=== PATIENT | female | born 1975 | race African-American/Black ===

== ENCOUNTER 2020-04-20 19:58 | Emergency (ER) | payer OTHER, SELFPAY ==
[2020-04-20 20:04] VITALS: BP 105/79; PULSE 84; RESP 16; TEMP 37.2; O2SAT 98; BMI 38.5
--- NOTE | 2020-04-20 22:35 | ED_ITS ---
HPI - Neuro Symptoms/Deficit General Chief Complaint: Neuro Symptoms/Deficit Stated Complaint: Fingertip numbness Time Seen by Provider: 04/20/20 22:35 Source: patient Mode of arrival: ambulatory Limitations: no limitations History of Present Illness HPI Narrative: This is a 44-year-old female who presents with reports numbness to the tips of all of her fingers on the right hand as well as the left hand after having undergone a neck block by her neurologist for her migraines. She denies any associated hearing / visual / speech abnormalities and states that other than the numbness she is having some left wrist discomfort and has a history of arthritis. Otherwise, she denies any fevers, chills, shortness of breath, chest pain / palpitations, GI symptoms, or symptoms. Review of Systems Review of Systems: Pertinent positives and negatives as stated in HPI and 10 point review systems is otherwise negative. [facility] Past Medical History Source: nursing notes reviewed Medical History Anxiety Asthma Depression Fibromyalgia HTN (hypertension) Right knee meniscal tear Surgical History Gastric bypass status for obesity Social History Social History Advance Directives: No Advance Directives Information Provided: Yes Physical Exam Vital Signs: Vital Signs: Last Vital Signs Temp 99 F 04/20/20 20:04 Pulse 84 04/20/20 20:04 Resp 16 04/20/20 20:04 BP 105/79 04/20/20 20:04 Pulse Ox 98 04/20/20 20:04 Body Mass Index 38.5 VITAL SIGNS: Reviewed. GENERAL: Well developed, well nourished, in no acute distress. HEAD: Normocephalic/atraumatic, EYES: PERRLA, EOMI intact without pain, no nystagmus/pallor/icterus noted EARS: Ext canals without abnormality, TMs non-bulging and non-erythematous NOSE: Nares patent bilateral OROPHARYNX: no oral lesions noted, posterior pharynx clear and non-erythematous without noted tonsillar enlargement/erythema/exudates NECK: Supple, no adenopathy LUNGS: Normal breath sounds. No adventitious sounds or accessory muscle use. SpO2<98> CARDIOVASCULAR: Regular rate and rhythm without noted murmurs, no JVD or lower extremity edema. ABDOMEN: Soft, non-tender, non-distended with bowel sounds. No rigidity. No guarding. No palpable masses or hernias noted MUSCULOSKELETAL: No tenderness, deformities, or effusions noted on gross inspection. EXTREMITIES: No cyanosis, clubbing or edema; BILATERAL UPPER EXTREMITY: Capillary refill is less than 3 seconds, neurovascular intact, Tinel and Phalen test are negative, and Spurling's is negative SKIN: Inspection of the skin reveals no rashes, ulcerations, jaundice, pallor, or petechiae. NEUROLOGIC: Alert and oriented x 4. Strength and sensation to light touch were grossly intact x 4 , no appreciable sensory deficits on evaluation of bilateral upper extremities, bilateral hand strength is 5/5 and symmetrical Course Course Course Narrative: This is a 44-year-old female with history and clinical presen tation consistent with likely neuropathy but this is certainly inconsistent with any stroke-like symptoms or radiculopathy. Patient does have underlying fibromyalgia but the numbness in all tips of the fingers on the right may be secondary to affect of the block, however with the pain and numbness in all fingers on the left hand this is more consistent with an arthritis. The patient was reassured and recommended her to try Aspercreme or Voltaren ([id number]) as she has a history of gastric bypass. Additionally, she was encouraged to follow up further primary care provider tomorrow for further re-evaluation and management. Discharge Plan Discharge Clinical Impression: Arthritis, Neuropathy Patient Disposition: Home, Self-Care Instructions: Arthritis (ED), Peripheral Neuropathy (ED) Additional Instructions: 1. recommend trying Tylenol 1000 mg, orally, every 6 hours as needed for hand discomfort. Do not exceed 4000 mg within 24 hours. 2. recommend trying [id number] Aspercreme or Voltaren to the left hand for symptom relief. The patient and/or family acknowledge understanding of results (as applicable), diagnosis, treatment plan, need for follow up, and symptoms that should prompt a return to the emergency room. Referrals: Pita Koehler MD [Physician] - 2 days (Neuropathy and arthritis in the hands)
== END 2020-04-20 23:04 | disposition home or self-care (01) ==
PROVIDERS: Emergency Provider Student in an Organized Health Care Education/Training Program
DX: M19.041 Primary osteoarthritis, right hand (principal); G62.9 Polyneuropathy, unspecified; I10 Essential (primary) hypertension; Z79.899 Other long term (current) drug therapy; Z98.84 Bariatric surgery status
CPT/HCPCS: 99283

== ENCOUNTER 2021-10-30 20:34 | Emergency (ER) | payer OTHER, SELFPAY ==
--- NOTE | ~2021-10-30 | CT_ITS ---
EXAMINATION: CT HEAD WITHOUT CONTRAST CLINICAL INFORMATION: Dizziness. COMPARISON: None TECHNIQUE: Contiguous axial imaging was performed from the skull base to vertex without intravenous administration of contrast. This CT examination was performed using dose optimization techniques as appropriate, variously including the following: *Automated exposure control *Adjustment of mA and/or kV according to patient size (this includes techniques or standardized protocols for targeted exams where dose is matched to indication/reason for exam; i.e. extremities or head) *Use of iterative reconstruction technique DLP: 816 mGy-cm FINDINGS: Nonspecific age indeterminate small hypodensities in the left parietal lobe. There is no evidence of acute intracranial hemorrhage or edematous territorial infarction. [place]-white matter differentiation is preserved. The ventricles are normal in size and configuration. No evidence for obstructive hydrocephalus. No abnormal mass effect or midline shift. No extra-axial fluid collections. No acute soft tissue or osseous abnormalities. The mastoid air cells and paranasal sinuses are clear. CT/CT head/brain wo IV con IMPRESSION: Nonspecific age indeterminate hypodensities in the left parietal lobe. Further characterization with a brain MRI is recommended.
--- NOTE | ~2021-10-30 | XR_ITS ---
EXAMINATION: XR CHEST CLINICAL INFORMATION: Shortness of breath COMPARISON: None TECHNIQUE: Frontal view of the chest was obtained. FINDINGS: No significant abnormality is noted involving the heart, lungs, mediastinum, bony thorax or soft tissues. XR/XR chest 1V IMPRESSION: Unremarkable examination.
[2021-10-30 20:50] VITALS: BP 103/70; BP 123/78; PULSE 86; PULSE 94; RESP 18; TEMP 37.2; O2SAT 99; BMI 27.7
--- NOTE | 2021-10-30 21:11 | ED_ITS ---
HPI - Dizziness General Chief Complaint: Dizziness Stated Complaint: cp Time Seen by Provider: 10/30/21 21:08 History of Present Illness HPI Narrative: Patient is a 46-year-old female presents today with having chest pain all day. It started when she woke up this morning. It is on the right side. No fever no chills no cough, no upper respiratory symptoms. Patient feels a spinning s ensation. Sudden onset not associated with any focal weakness. No diaphoresis. Symptoms seem to be worse with movement of her head. No ringing in her ears. history of high blood pressure, positive history of high cholesterol and smoking. patient denies any history of DE. positive history of obesity. Status post gastric bypass a few years ago. No history of sudden in the family. No history of blood clots in the past. No travel history. No leg swelling. Related Data Previous Rx's Medication Instructions Recorded meclizine 25 mg tablet 25 mg PO QID PRN #20 tab 10/30/21 ondansetron 4 mg disintegrating 4 mg PO TID PRN 5 Days #10 tab 10/30/21 tablet Allergies Allergy/AdvReac Type Severity Reaction Status Date / Time No Known Allergies Allergy Verified 10/30/21 21:08 Review of Systems Review of Systems: Positive chest pain Positive disease screening Yes all other systems are reviewed and are negative [facility] Past Medical History Attestation statement: The following information was validated with the patient. Medical History Anxiety Asthma Depression Fibromyalgia HTN (hypertension) Right knee meniscal tear Surgical History Gastric bypass status for obesity Social History Social History Advance Directives: No Advance Directives Information Provided: No Physical Exam Vital Signs: Vital Signs: Last Vital Signs Temp 98.9 F 10/30/21 21:52 Pulse 86 10/30/21 21:52 Resp 16 10/30/21 21:52 BP 103/70 10/30/21 21:52 Pulse Ox 99 10/30/21 21:52 BMI result Body Mass Index 27.7 Appearance: Alert. Oriented X3. No acute distress. Eyes: Pupils equal, round and reactive to light. ENT: Pharynx normal. Neck: Normal inspection. Neck supple. No lymph nodes noted. No crepitus CVS: Normal heart rate and rhythm. Pulses normal. Normal S1 and S2 Respiratory: No respiratory distress. Breath sounds normal. No Wheezing. No rales Abdomen: Soft and nontender. No rigidity. No distention. good BS x4 Skin: Skin warm and dry. Normal skin color. Normal skin turgor. Extremities: No lower extremity edema. Neurovascular intact to all extremities. No Lacerations. No Rash Neuro: Oriented X 3. No motor deficit. No sensory deficit. Moving all extermities. No slurred speech MDM - Dizziness MDM Narrative Medical decision making narrative: Patient's CT scan of the head was grossly negative. Patient's electrolytes are normal. Symptoms reproduced on turning patient's head. There is nystagmus that is fatigable. The symptoms are extreme worsening with movement. Consistent with peripheral vertigo. Patient also had nonspecific chest pain. No risk factors for pulmonary emboli. Patient's D-dimer is negative making pulmonary emboli unlikely in the setting of low risk. Patient's troponin is negative. History not consistent with DE. the tightness has been ongoing all day. Negative troponin the setting of low risk next ACS unlikely. Patient has atypical cardiac history, history of hypertension high cholesterol. Is 46. Negative troponin negative EKG heart score is less than. 3, patient's EKG showed a sinus pattern heart rate is 70 OR QRS QTC within normal limits there is no acute ST segment elevation noted Medical Records Attestation: I reviewed the patient's medical records. Lab Data Attestation: I reviewed the patient's lab results. Result diagrams: 10/30/21 21:49 10/30/21 21:49 Labs: Lab Results 10/30/21 10/30/21 10/30/21 Range/Units 21:20 21:48 21:49 WBC 4.8 (4.8-10.8) X10*3/uL RBC 4.14 L (4.20-5.50) X10*6/uL Hgb 11.2 L (12.0-16.0) g/dl Hct 35.1 L (37.0-47.0) % MCV 84.8 (80.0-98.0) fL MCH 27.1 (27.0-33.0) pg MCHC 31.9 (31.0-35.0) g/dl RDW 13.8 (11.0-16.0) % Plt Count 231 (160-400) X10*3/uL MPV 10.1 (9.4-12.3) fL Immature Gran % (Auto) 0.2 (0.0-0.4) % Neut % (Auto) 65.3 (45-73) % Lymph % (Auto) 22.4 (20-40) % Clinch % (Auto) 10.9 (2-11) % Eos % (Auto) 0.8 (0-4) % Baso % (Auto) 0.4 (0-2) % Lymph # (Auto) 1.1 L (1.2-4.9) X10*3/uL Clinch # (Auto) 0.5 (0.1-1.2) X10*3/uL Eos # (Auto) 0.0 (0.0-0.4) X10*3/uL Baso # (Auto) 0.0 (0.0-0.2) X10*3/uL Abs Immat Gran (auto) 0.01 (0.00-0.03) X10*3/uL Absolute Neuts (auto) 3.1 (2.0-8.3) x10*3/uL Absolute Nucleated RBC 0.000 (0.0-0.012) X10*3/uL Nucleated RBC % (auto) 0.0 (0.0-0.2) /100WBC D-Dimer High Sensitivty NG/ML Sodium (135-145) mmol/L Potassium (3.3-5.1) mmol/L Chloride (96-108) mmol/L Carbon Dioxide (22-29) mmol/L Anion Gap (12-20) BUN (9-16) mg/dL Creatinine (0.5-1.4) mg/dL Estim Creat Clear Calc Estimated GFR POC Glucose 88 (60-115) mg/dL Random Glucose (60-115) mg/dL Calcium (8.4-10.2) mg/dL Total Bilirubin (0.0-1.0) mg/dL AST (5-31) U/L ALT (0-31) U/L Alkaline Phosphatase (39-117) U/L Troponin I High Sens < 3.5 (<3.5-17.0) ng/L Total Protein (6.5-8.0) g/dL Albumin (3.5-5.0) g/dL Beta HCG, Quant mIU/mL Urine Color Urine Appearance Urine pH (5.0-8.0) Ur Specific [place] (1.005-1.025) Urine Protein (NEG-TRACE) MG/DL Urine Glucose (UA) (NEG) MG/DL Urine Ketones (NEG) MG/DL Urine Blood (NEG) Urine Nitrite (NEG) Ur Leukocyte Esterase (NEG) 10/30/21 10/30/21 10/30/21 Range/Units 21:49 21:49 23:01 WBC (4.8-10.8) X10*3/uL RBC (4.20-5.50) X10*6/uL Hgb (12.0-16.0) g/dl Hct (37.0-47.0) % MCV (80.0-98.0) fL MCH (27.0-33.0) pg MCHC (31.0-35.0) g/dl RDW (11.0-16.0) % Plt Count (160-400) X10*3/uL MPV (9.4-12.3) fL Immature Gran % (Auto) (0.0-0.4) % Neut % (Auto) (45-73) % Lymph % (Auto) (20-40) % Clinch % (Auto) (2-11) % Eos % (Auto) (0-4) % Baso % (Auto) (0-2) % Lymph # (Auto) (1.2-4.9) X10*3/uL Clinch # (Auto) (0.1-1.2) X10*3/uL Eos # (Auto) (0.0-0.4) X10*3/uL Baso # (Auto) (0.0-0.2) X10*3/uL Abs Immat Gran (auto) (0.00-0.03) X10*3/uL Absolute Neuts (auto) (2.0-8.3) x10*3/uL Absolute Nucleated RBC (0.0-0.012) X10*3/uL Nucleated RBC % (auto) (0.0-0.2) /100WBC D-Dimer High Sensitivty 191 NG/ML Sodium 141 (135-145) mmol/L Potassium 4.0 (3.3-5.1) mmol/L Chloride 113 H (96-108) mmol/L Carbon Dioxide 22 (22-29) mmol/L Anion Gap 10 L (12-20) BUN 8 L (9-16) mg/dL Creatinine 0.74 (0.5-1.4) mg/dL Estim Creat Clear Calc 102.5 Estimated GFR > 60 POC Glucose (60-115) mg/dL Random Glucose 87 (60-115) mg/dL Calcium 8.6 (8.4-10.2) mg/dL Total Bilirubin 0.2 (0.0-1.0) mg/dL AST 22 (5-31) U/L ALT 23 (0-31) U/L Alkaline Phosphatase 103 (39-117) U/L Troponin I High Sens (<3.5-17.0) ng/L Total Protein 5.8 L (6.5-8.0) g/dL Albumin 3.6 (3.5-5.0) g/dL Beta HCG, Quant < 2 mIU/mL Urine Color YELLOW Urine Appearance CLEAR Urine pH 6.5 (5.0-8.0) Ur Specific [place] 1.015 (1.005-1.025) Urine Protein NEG (NEG-TRACE) MG/DL Urine Glucose (UA) NEG (NEG) MG/DL Urine Ketones NEG (NEG) MG/DL Urine Blood NEG (NEG) Urine Nitrite NEG (NEG) Ur Leukocyte Esterase NEG (NEG) Discharge Plan Discharge Clinical Impression: Benign paroxysmal positional vertigo Patient Disposition: Home, Self-Care Instructions: Vertigo (ED) Prescriptions: New meclizine 25 mg tablet 25 mg PO QID PRN (Reason: vertigo) Qty: 20 0RF ondansetron 4 mg tablet,disintegrating 4 mg PO TID PRN (Reason: nausea and vomiting) 5 Days Qty: 10 0RF Referrals: Pita Koehler MD [Primary Care Provider] -
[2021-10-30 21:23] LABS: Glucose, Whole Blood 88 mg/dL (60-115)
[2021-10-30] MEDS: 0.9 % Sodium Chloride 1,000 ML 999 ML IV (21:30)
[2021-10-30] MEDS: ondansetron HCL 4 MG/2 ML VIAL IVPUSH (21:47)
[2021-10-30] MEDS: Meclizine HCl 25 MG TABLET PO (21:48)
[2021-10-30 21:52] VITALS: BP 103/70; PULSE 86; RESP 16; TEMP 37.2; O2SAT 99
[2021-10-30 21:55] LABS: Basophils Percent Auto 0.4 % (0-2); Eosinophils Percent Auto 0.8 % (0-4); Hematocrit 35.1 % (37.0-47.0); Hemoglobin 11.2 g/dl (12.0-16.0); Imm Gran Abs Auto 0.01 X10*3/uL (0.00-0.03); Imm Gran Pct Auto 0.2 % (0.0-0.4); Lymphocytes Absolute Auto 1.1 X10*3/uL (1.2-4.9); Lymphocytes Percent Auto 22.4 % (20-40); MANUAL DIFF FLAG NO; Mean Corpuscular HGB Conc 31.9 g/dl (31.0-35.0); Mean Corpuscular Hemoglobin 27.1 pg (27.0-33.0); Mean Corpuscular Volume 84.8 fL (80.0-98.0); Mean Platelet Volume 10.1 fL (9.4-12.3); Monocytes Absolute Auto 0.5 X10*3/uL (0.1-1.2); Monocytes Percent Auto 10.9 % (2-11); Neutrophils Absolute Auto 3.1 x10*3/uL (2.0-8.3); Neutrophils Percent Auto 65.3 % (45-73); Platelet Count 231 X10*3/uL (160-400); Red Blood Count 4.14 X10*6/uL (4.20-5.50); Red Cell Distribution Width 13.8 % (11.0-16.0); White Blood Count 4.8 X10*3/uL (4.8-10.8)
[2021-10-30 22:03] LABS: D Dimer High Sensitivity 191 NG/ML
[2021-10-30 22:10] LABS: Alanine Aminotransferase 23 U/L (0-31); Albumin Level 3.6 g/dL (3.5-5.0); Alkaline Phosphatase 103 U/L (39-117); Anion Gap 10 (12-20); Aspartate Amino Transferase 22 U/L (5-31); Bilirubin Total 0.2 mg/dL (0.0-1.0); Blood Urea Nitrogen 8 mg/dL (9-16); Calcium 8.6 mg/dL (8.4-10.2); Carbon Dioxide 22 mmol/L (22-29); Chloride 113 mmol/L (96-108); Creatinine Clr Calc Pharmacy 102.5; Estimated Glomerular Filt Rate > 60; Glucose Random 87 mg/dL (60-115); Sodium 141 mmol/L (135-145); Total Protein 5.8 g/dL (6.5-8.0)
[2021-10-30 22:16] LABS: Troponin-I High Sensitivity < 3.5 ng/L (<3.5-17.0)
[2021-10-30 22:16] LABS: HCG Quantitative < 2 mIU/mL
[2021-10-30 23:06] LABS: Appearance Urine CLEAR; Color Urine YELLOW; Glucose Urine UA NEG (NEG); Leukocyte Esterase Urine NEG (NEG); Nitrite Urine NEG (NEG); PH 6.5 (5.0-8.0); Specific Gravity - Urine 1.015 (1.005-1.025); Urine Blood NEG (NEG); Urine Ketones NEG (NEG); Urine Protein NEG (NEG-TRACE)
--- NOTE | 2021-10-30 23:20 | ECG_ITS ---
Test Reason : DIZZNESS Blood Pressure : / mmHG Vent. Rate : 069 BPM Atrial Rate : 069 BPM P-R Int : 176 ms QRS Dur : 082 ms QT Int : 384 ms P-R-T Axes : 044 009 021 degrees QTc Int : 411 ms Normal sinus rhythm Possible Inferior infarct , age undetermined Cannot rule out Anterior infarct , age undetermined Abnormal ECG No previous ECGs available Referred By: Karissa Reyez Electronically Signed By:BLAYNE MONTALVO MD
== END 2021-10-30 23:47 | disposition home or self-care (01) ==
PROVIDERS: Emergency Provider Emergency Medicine Emergency Medical Services; PCP Pediatrics
DX: H81.13 Benign paroxysmal vertigo, bilateral (principal); R07.89 Other chest pain; Z79.899 Other long term (current) drug therapy
CPT/HCPCS: 36415; 70450; 71045; 80053; 81003; 82947; 84484; 84702; 85025; 85379; 93005; 96361; 96374; 99284; J2405